=== PATIENT | male | born 1995 | race Caucasian/White ===

== ENCOUNTER 2021-08-18 08:53 | Emergency (ER) | payer OTHER, MEDICAID, SELFPAY ==
[2021-08-18 09:03] VITALS: BP 130/87; PULSE 66; RESP 20; TEMP 36.6; O2SAT 98; BMI 20.5
[2021-08-18] MEDS: ALBUTEROL 2.5 MG/3 ML NEB (ADULT) 5 MG INH (09:14)
[2021-08-18 09:15] VITALS: O2SAT 98
[2021-08-18 09:24] VITALS: PULSE 79; O2SAT 100
[2021-08-18 09:30] VITALS: PULSE 85; O2SAT 98
[2021-08-18 09:37] LABS: COVID19 -Nasal RAPID Negative (Negative)
--- NOTE | 2021-08-18 09:47 | ED.SOB ---
HPI - SOB/Dyspnea General Chief Complaint: Shortness of Breath/Dyspnea Stated Complaint: Trouble breathing Time Seen by Provider: 08/18/21 09:46 Source: family Mode of arrival: Ambulatory Limitations: no limitations History of Present Illness HPI Narrative: This is a 25-year-old male with remote history of asthma. Patient states he woke up this morning feeling very tight in his chest. Patient denies any pain. No syncope. No nausea or vomiting. No other GI or urinary symptoms. Patient has not had to use an inhaler since he was much younger. Nose road seasonal allergies. He has a cough this morning, little bit of congestion in his upper chest but no nasal congestion. He has not had any fevers. Patient is otherwise healthy. No daily medications. He is allergic to iodine. Has not had any known exposures. He uses marijuana daily, no tobacco or vaping, occasional alcohol, no other recreational illicit drugs. Related Data Previous Rx's Medication Instructions Recorded albuterol sulfate 90 mcg/actuation 2 puff INHALATION QID PRN #8.5 g 08/18/21 aerosol inhaler prednisone 20 mg tablet 40 mg PO DAILY #6 tab 08/18/21 Allergies Allergy/AdvReac Type Severity Reaction Status Date / Time iodine [IODINE] Allergy Intermediate RED Unverified 07/04/17 11:46 BUMPS/RASH ALL OVER HIS LEGS (TOE SURGERY) Review of Systems Review of Systems ROS Unobtainable: All systems reviewed & are unremarkable except as noted in HPI and below Patient History Social History Smoking Status: Never smoker Smoking Status: Never smoker alcohol intake frequency: a few times a week Substance Use Type: marijuana Exam Narrative Exam Narrative: GENERAL: Alert and oriented x three, male in mild distress. HEENT: Head normocephalic, atraumatic, EOMI, pupils reactive, face symmetric, moist mucous membranes NECK: Supple, full range of motion CARDIOVASCULAR: Regular rate and rhythm without murmurs, rubs or gallops. RESPIRATORY: Breath sounds equal bilaterally, no wheezes rales or rhonchi. No tachypnea accessory muscle use. Speaks in full sentences. Patient had received 1 albuterol neb prior to evaluation. ABDOMEN: Soft, nontender. Normoactive bowel sounds all 4 quadrants. No guarding or rebound, rigidity, no mass : No CVA tenderness EXTREMITIES: Normal range of motion, no clubbing or edema. Neurovascularly intact NEUROLOGICAL: Cranial nerves II through XII grossly intact. Moving all extremities. Normal gait. SKIN: Warm, dry, no petechiae, no rashes or lesions. Initial Vital Signs Initial Vital Signs: Vital Signs Temperature 97.9 F 08/18/21 09:03 Pulse Rate 66 08/18/21 09:03 Respiratory Rate 20 08/18/21 09:03 Blood Pressure 130/87 08/18/21 09:03 Pulse Oximetry 98 08/18/21 09:03 Course Orders Ordered: Discontinued Medications Albuterol (Albuterol 2.5 Mg/3 Ml Neb (Adult)) 5 mg INH NOW ONE Stop: 08/18/21 09:11 Last Admin: 08/18/21 09:14 Dose: 5 mg Documented by: TYSHAWN Albuterol (Albuterol Hfa Prepack) 1 box MISC SEEINSTR ONE Stop: 08/18/21 10:31 Last Admin: 08/18/21 10:39 Dose: 1 box Documented by: YAMIL Prednisone (Prednisone 20 Mg Tablet) 40 mg PO NOW ONE Stop: 08/18/21 09:51 Last Admin: 08/18/21 10:04 Dose: 40 mg Documented by: YAMIL Vital Signs Vital signs: Vital Signs - 8 hr 08/18/21 09:03 08/18/21 09:15 08/18/21 09:24 Temperature 97.9 F Pulse Rate 66 79 Respiratory Rate 20 Blood Pressure 130/87 Pulse Oximetry 98 98 100 MDM - SOB/Dyspnea Lab Data Labs: Lab Results 08/18/21 Range/Units 09:00 SARS-CoV-2 (PCR) Negative (Negative) Imaging Data Chest x-ray: Radiologist's Impression: [address] [address] XRay Report Signed Patient: Elidia Calvillo MR#: [id number] : 1995 Acct:[id number] Age/Sex: 25 / M Date of Service: 08/18/21 Loc: ED Accession Number: [id number] ?? Procedure: XR chest 2V Ordering Provider: Juani Bassett D.O. PROCEDURE:? XR CHEST 2V ? INDICATIONS:? sob, remote asthma hx ? TECHNIQUE:? 2 views of the chest were acquired.? ? COMPARISON:? [facility], , CHEST 1 VIEW, 07/02/2014, 20:17. ? FINDINGS:? ? Surgical changes and devices:? None.? ? Lungs and pleura:? Lungs are clear.? No pleural effusions or pneumothorax.? ? Mediastinum:? Mediastinal contours are normal.? Heart size is normal.? ? Bones and chest wall:? No suspicious bony abnormalities.? Soft tissues appear unremarkable.? ? IMPRESSION:? No acute cardiopulmonary pathology. ? ? Dictated by: Sha Rodriguez M.D. on 08/18/2021 at 10:15 ? ? Approved by: Sha Rodriguez M.D. on 08/18/2021 at 10:19?? MDM Narrative Medical decision making narrative: This is a 25-year-old male with known history of asthma who woke up with shortness of breath who responded well to albuterol. Patient's COVID swab is negative, he has not had any recent upper respiratory infection type symptoms. No known seasonal allergies. He does use marijuana daily. Chest x-ray was obtained and shows no acute change. Patient responded well to albuterol, prescription for albuterol provided as well as short course of prednisone. Patient does not have a spacer and her head use RT training was given. Plan to follow-up with primary care. Return precautions discussed. Discharge Plan Departure Patient Disposition: Home Clinical Impression: Asthma exacerbation Instructions: DI for Asthma -- Adult Activity Restrictions/Additional Instructions: Follow-up with primary care for recheck. A suspect your having an asthma exacerbation today. Take steroids once daily until gone. You may use albuterol 1-2 puffs every 4-6 hours as needed for wheezing. Use spacer with your inhaler. Prescription sent to [facility]. Return if having fevers, new or worsening chest pain, increasing shortness of breath, passing out, persistent vomiting or other new or concerning symptoms. Prescriptions: New albuterol sulfate 90 mcg/actuation HFA aerosol inhaler 2 puff inhalation QID PRN (Reason: shortness of breath or wheezing) Qty: 8.5 0RF prednisone 20 mg tablet 40 mg PO DAILY Qty: 6 0RF
--- NOTE | 2021-08-18 09:50 | DI.RAD.S_ITS ---
PROCEDURE: XR CHEST 2V INDICATIONS: sob, remote asthma hx TECHNIQUE: 2 views of the chest were acquired. COMPARISON: [facility], , CHEST 1 VIEW, 07/02/2014, 20:17. FINDINGS: Surgical changes and devices: None. Lungs and pleura: Lungs are clear. No pleural effusions or pneumothorax. Mediastinum: Mediastinal contours are normal. Heart size is normal. Bones and chest wall: No suspicious bony abnormalities. Soft tissues appear unremarkable. IMPRESSION: No acute cardiopulmonary pathology. Dictated by: Sha Rodirguez M.D. on 08/18/2021 at 10:15 Approved by: Sha Rodriguez M.D. on 08/18/2021 at 10:19
[2021-08-18 10:03] VITALS: PULSE 86; O2SAT 93
[2021-08-18] MEDS: predniSONE 20 MG TABLET 40 MG PO (10:04)
[2021-08-18 10:30] VITALS: PULSE 76; O2SAT 97
[2021-08-18] MEDS: ALBUTEROL HFA PREPACK 1 BOX MISC (10:39)
== END 2021-08-18 10:56 | disposition home or self-care (01) ==
PROVIDERS: Emergency Provider Emergency Medicine
DX: J45.901 Unspecified asthma with (acute) exacerbation (principal); R07.89 Other chest pain; Z20.822 Contact with and (suspected) exposure to COVID-19
CPT/HCPCS: 71046; 87635; 94640; 99283; C9803; J7613

== ENCOUNTER 2022-02-20 19:14 | Emergency (ER) | payer OTHER, MEDICAID, SELFPAY ==
[2022-02-20 19:20] VITALS: BP 133/73; PULSE 80; RESP 18; TEMP 36.7; O2SAT 98; BMI 20.5
[2022-02-20] MEDS: PENICILLIN G BENZATHINE 1,200,000 UNIT/2 ML SYRINGE 1200000 UNIT IM (19:58)
--- NOTE | 2022-02-20 20:24 | ED.URI ---
HPI - URI/Sore Throat General Chief Complaint: Upper Respiratory Symptoms Stated Complaint: Needs tonsils checked out Time Seen by Provider: 02/20/22 19:21 Source: patient Mode of arrival: Ambulatory History of Present Illness HPI Narrative: 26-year-old male nonsmoker with noncontributory medical history presents for evaluation of sore throat for the past day or 2. He is had subjective fever and chills and a sore throat with painful swallowing. He denies runny nose or cough. He has had no nausea or vomiting. He denies any chest pain or shortness of breath. Related Data Previous Rx's Medication Instructions Recorded albuterol sulfate 90 mcg/actuation 2 puff inhalation QID PRN 08/18/21 aerosol inhaler shortness of breath or wheezing #8.5 grams prednisone 20 mg tablet 40 mg PO DAILY #6 tabs 08/18/21 Allergies Allergy/AdvReac Type Severity Reaction Status Date / Time iodine [IODINE] Allergy Intermediate RED Verified 02/20/22 19:20 BUMPS/RASH ALL OVER HIS LEGS (TOE SURGERY) Review of Systems Review of Systems Narrative: GENERAL: See HPI HEENT: See HPI RESPIRATORY: See HPI CARDIOVASCULAR: Denies chest pain, palpitations, orthopnea, edema, GASTROINTESTINAL: Denies nausea, vomiting, abdominal pain, diarrhea, constipation, melena. : Denies dysuria, frequency, incontinence, hematuria, urinary retention. MUSCULOSKELETAL: denies weakness, joint pain, or bony pain SKIN: Denies rash, skin lesions, or other NEUROLOGIC: Denies weakness, headache, numbness, change in speech, confusion, seizures, incoordination. PSYCHIATRIC: No concerning psychosocial issues. 12 point review of systems is negative except for those stated above Patient History Social History Smoking Status: Never smoker Smoking Status: Never smoker alcohol intake frequency: a few times a week Substance Use Type: marijuana Exam Narrative Exam Narrative: GENERAL: [26] year old patient appears stated age. Well-developed patient, in mild distress. Patient managing secretions and airway without difficulty HEAD: Atraumatic. Normocephalic. EYES: Pupils equal round and reactive. Extraocular motions intact. No scleral icterus. No injection or drainage. ENT: Nose without bleeding, purulent drainage. T tonsillar swelling and erythema with mild soft palate petechiae, no obvious exudate noted. No significant unilateral swelling or uvular pointing to suggest abscess NECK: Trachea midline. Tender anterior lymphadenopathy CARDIOVASCULAR: Regular rate and rhythm without murmurs, gallops, or rubs. RESPIRATORY: Clear to auscultation. Breath sounds equal bilaterally. No wheezes, rales, or rhonchi. GASTROINTESTINAL: Abdomen soft, non-tender, nondistended. EXTREMITIES: No edema or joint tenderness. BACK: Nontender without deformity or crepitance. No flank tenderness. NEURO: AOx3. SKIN: No rash or erythema of visible areas Initial Vital Signs Initial Vital Signs: Vital Signs Temperature 98.0 F 02/20/22 19:20 Pulse Rate 80 02/20/22 19:20 Respiratory Rate 18 02/20/22 19:20 Blood Pressure 133/73 02/20/22 19:20 Pulse Oximetry 98 02/20/22 19:20 Oxygen Delivery Method 02/20/22 19:20 Course Orders Ordered: Discontinued Medications Penicillin G Benzathine (Penicillin G Benzathine 1,200,000 Unit/2 Ml Syringe) 1,200,000 unit IM NOW ONE Stop: 02/20/22 19:50 Last Admin: 02/20/22 19:58 Dose: 1,200,000 unit Documented By: BS Vital Signs Vital signs: Vital Signs - 8 hr 02/20/22 19:20 02/20/22 20:27 Temperature 98.0 F Pulse Rate 80 72 Respiratory Rate 18 16 Blood Pressure 133/73 Pulse Oximetry 98 99 Oxygen Delivery Method Room Air Room Air MDM - URI/Sore Throat Lab Data Labs: Point of Care Testing Rapid Strep A Positive Discharge Plan Departure Patient Disposition: Home Clinical Impression: Strep pharyngitis Instructions: DI for Strep Throat Activity Restrictions/Additional Instructions: *You have been diagnosed with [strep pharyngitis] *What to do: *Please continue to take your regular medications as directed. *Please follow up with your primary care provider in 2-3 days, call for an appointment. Let them know you were seen in the Emergency Department and that we ask that you be seen in follow up. We will electronically transmit a record of today's note if your PCP is in our system *If you do not have a primary care provider please contact the [facility] Resource line at [phone]. They will ask some questions about your medical history and help get you set up with a doctor in the community. *Return to Emergency Department if you should have any new, worsening or concerning symptoms, such as [fever greater than 101 F, shaking chills, worsening pain, persistent vomiting or other bothersome symptoms] Prescriptions: No Action albuterol sulfate 90 mcg/actuation HFA aerosol inhaler 2 puff inhalation QID PRN (Reason: shortness of breath or wheezing) Qty: 8.5 0RF prednisone 20 mg tablet 40 mg PO DAILY Qty: 6 0RF Visit Report Forms: Patient Portal/API
[2022-02-20 20:27] VITALS: PULSE 72; RESP 16; O2SAT 99
== END 2022-02-20 20:28 | disposition home or self-care (01) ==
PROVIDERS: Emergency Provider Emergency Medicine
DX: J02.0 Streptococcal pharyngitis (principal)
CPT/HCPCS: 87880; 96372; 99283; J0561

== ENCOUNTER 2022-03-07 17:00 | Emergency (ER) | payer OTHER, MEDICAID, SELFPAY ==
[2022-03-07 17:16] VITALS: BP 128/60; PULSE 68; RESP 15; TEMP 37.2; O2SAT 100
--- NOTE | 2022-03-07 17:27 | ED.RECABL ---
HPI - Recheck/Abnormal Lab/Rx <Jossie Mason PA-C - Last Filed: 03/07/22 17:37> General Chief Complaint: Recheck/Abnormal Lab/Rx Stated Complaint: needs new inhaler Time Seen by Provider: 03/07/22 17:26 Source: patient Mode of arrival: Ambulatory History of Present Illness HPI narrative: 26-year-old male presents to the emergency department with concern for wanting a new inhaler. He states he normally uses albuterol since childhood for asthma and breathing issues. He had the flu last week and his symptoms have resolved but his inhaler is getting low and he would like a refill. He is working on getting established with a primary care provider locally. He states he often gets throat discomfort during and after a viral illness and he feels like the inhaler helps with this helps with his breathing. He does not feel like his breathing is worse than it has been in the past. He denies any other complaints or concerns. Related Data Previous Rx's Medication Instructions Recorded albuterol sulfate 90 mcg/actuation 2 puff inhalation QID PRN 08/18/21 aerosol inhaler shortness of breath or wheezing #8.5 grams prednisone 20 mg tablet 40 mg PO DAILY #6 tabs 08/18/21 albuterol sulfate 90 mcg/actuation 2 puff inhalation Q6H PRN 03/07/22 aerosol inhaler shortness of breath or wheezing #6.7 grams Allergies Allergy/AdvReac Type Severity Reaction Status Date / Time iodine [IODINE] Allergy Intermediate RED Verified 03/07/22 17:16 BUMPS/RASH ALL OVER HIS LEGS (TOE SURGERY) Review of Systems <Jossie Mason PA-C - Last Filed: 03/07/22 17:37> Review of Systems Narrative: Unremarkable except as noted in the HPI Patient History <Jossie Mason PA-C - Last Filed: 03/07/22 17:37> Social History Smoking Status: Never smoker Smoking Status: Never smoker alcohol intake frequency: holidays/special occasions only Substance Use Type: marijuana Exam <Jossie Mason PA-C - Last Filed: 03/07/22 17:37> Narrative Exam Narrative: GENERAL: 26 year old patient appears stated age. Well-developed patient, in mild distress. HEAD: Atraumatic. Normocephalic. EYES: Pupils equal round and reactive. Extraocular motions intact. No scleral icterus. No injection or drainage. ENT: Nose without bleeding, purulent drainage. Throat without erythema, tonsillar hypertrophy or exudate. Airway patent. NECK: Trachea midline. Non tender CARDIOVASCULAR: Regular rate and rhythm without murmurs, gallops, or rubs. RESPIRATORY: Clear to auscultation. Breath sounds equal bilaterally. No wheezes, rales, or rhonchi. GASTROINTESTINAL: Abdomen nondistended. EXTREMITIES: No edema or joint tenderness. NEURO: AOx3. SKIN: No rash or erythema of visible areas Initial Vital Signs Initial Vital Signs: Vital Signs Temperature 99.0 F 03/07/22 17:16 Pulse Rate 68 03/07/22 17:16 Respiratory Rate 15 03/07/22 17:16 Blood Pressure 128/60 03/07/22 17:16 Pulse Oximetry 100 03/07/22 17:16 Oxygen Delivery Method 03/07/22 17:16 <Alpa Allan DO - Last Filed: 03/09/22 04:36> Initial Vital Signs Initial Vital Signs: Vital Signs Temperature 99.0 F 03/07/22 17:16 Pulse Rate 68 03/07/22 17:16 Respiratory Rate 15 03/07/22 17:16 Blood Pressure 128/60 03/07/22 17:16 Pulse Oximetry 100 03/07/22 17:16 Oxygen Delivery Method 03/07/22 17:16 Course <Jossie Mason PA-C - Last Filed: 03/07/22 17:37> Vital Signs Vital signs: Vital Signs - 8 hr 03/07/22 17:16 Temperature 99.0 F Pulse Rate 68 Respiratory Rate 15 Blood Pressure 128/60 Pulse Oximetry 100 Oxygen Delivery Method Room Air <Alpa Allan DO - Last Filed: 03/09/22 04:36> Vital Signs Vital signs: Vital Signs - 8 hr 03/07/22 17:16 Temperature 99.0 F Pulse Rate 68 Respiratory Rate 15 Blood Pressure 128/60 Pulse Oximetry 100 Oxygen Delivery Method Room Air MDM - Recheck/Abnormal Lab/Rx <Jossie Mason PA-C - Last Filed: 03/07/22 17:37> MDM Narrative Medical decision making narrative: Well-appearing 26-year-old with a history of asthma presents with concern for wanting a medication refill of his albuterol inhaler. Patient states he had the flu last week and recovered from this but feels like his breathing is still affected. Vitals today are unremarkable lung sounds are clear. Patient denies any other complaints or concerns except wanting a refill as his inhaler is running very low. Does not feel that his breathing is worsened baseline with his asthma. A refill is prescribed today and he is advised to continue to work on following up closely and seeing a primary care provider for ongoing care and maintenance of his asthma symptoms. Return precautions provided, follow-up plan discussed, all questions answered. Discharge Plan Departure Patient Disposition: Home Clinical Impression: Medication refill Activity Restrictions/Additional Instructions: Thank you for letting us be part of her care in the emergency department today. I have sent in a prescription for a new inhaler for you. I strongly recommend that you follow up closely with primary care and work on getting into be seen with a regular doctor. There is no evidence of an emergent or life threatening illness at this time, but follow up with your doctor in 1-2 days is recommended nonetheless to continue to rule out serious underlying causes of your symptoms. Please call the office for an appointment. Please return to the Emergency Department for any worsening or persistent symptoms. Please take medications as directed. Prescriptions: New albuterol sulfate 90 mcg/actuation HFA aerosol inhaler 2 puff inhalation Q6H PRN (Reason: shortness of breath or wheezing) Qty: 6.7 0RF No Action albuterol sulfate 90 mcg/actuation HFA aerosol inhaler 2 puff inhalation QID PRN (Reason: shortness of breath or wheezing) Qty: 8.5 0RF prednisone 20 mg tablet 40 mg PO DAILY Qty: 6 0RF Visit Report Forms: Patient Portal/API <Alpa Allan, - Last Filed: 03/09/22 04:36> Cosign ED Attending Cosorlandoature Attestation: I was immediately available in the department for consultation. Documentation has been reviewed. I agree with assessment and plan.
== END 2022-03-07 17:33 | disposition home or self-care (01) ==
PROVIDERS: Emergency Provider Student in an Organized Health Care Education/Training Program
DX: Z76.0 Encounter for issue of repeat prescription (principal)
CPT/HCPCS: 99281

== ENCOUNTER 2022-06-11 10:33 | Emergency (ER) | payer OTHER, MEDICAID, SELFPAY ==
[2022-06-11 10:54] VITALS: BP 166/65; PULSE 73; RESP 16; TEMP 36.8; O2SAT 97; BMI 20.5
--- NOTE | 2022-06-11 10:59 | DI.RAD.S_ITS ---
PROCEDURE: XR KNEE RT 3V INDICATIONS: trauma TECHNIQUE: For views of the knee were acquired. COMPARISON: [facility], , KNEE 3V RIGHT, 07/29/2014, 16:00. FINDINGS: Bones: No fractures or dislocations. No suspicious bony lesions. Questionable linear calcifications near the intertrochanteric notch Soft tissues: Moderate effusion. Patella faizan. No suspicious soft tissue calcifications. IMPRESSION: Moderate effusion, cannot exclude internal derangement. Subtle calcification concerning for intra-articular free body. Dictated by: Otoniel Gaspar M.D. on 06/11/2022 at 10:41 Approved by: Otoniel Gasapr M.D. on 06/11/2022 at 10:45
--- NOTE | 2022-06-11 11:01 | ED.LOWEXIN ---
HPI - Extremity Injury (Lower) General Chief Complaint: Extremity Injury, Lower Stated Complaint: R Knee pain after wrestling Time Seen by Provider: 06/11/22 10:59 History of Present Illness HPI Narrative: While wrestling last night he feels that his right knee was dislocated briefly. Specifically what he describes is a valgus stress on his knee which caused the knee to bend medially to touch the other knee. He denies injury elsewhere. Since that injury last night he is not been able to bear weight on that leg. The pain is entirely locally around his right knee. He has had some chronic knee problems over the years. No previous surgery. Related Data Previous Rx's Medication Instructions Recorded albuterol sulfate 90 mcg/actuation 2 puff inhalation QID PRN 08/18/21 aerosol inhaler shortness of breath or wheezing #8.5 grams prednisone 20 mg tablet 40 mg PO DAILY #6 tabs 08/18/21 albuterol sulfate 90 mcg/actuation 2 puff inhalation Q6H PRN 03/07/22 aerosol inhaler shortness of breath or wheezing #6.7 grams Allergies Allergy/AdvReac Type Severity Reaction Status Date / Time iodine [IODINE] Allergy Intermediate RED Verified 03/07/22 17:16 BUMPS/RASH ALL OVER HIS LEGS (TOE SURGERY) Patient History Social History Smoking Status: Never smoker Smoking Status: Never smoker alcohol intake frequency: holidays/special occasions only Substance Use Type: marijuana Exam Narrative Exam Narrative: GENERAL: Alert, cooperative and in no distress. HEAD: Atraumatic. Normocephalic. EYES: Sclera are clear without icterus. Extraocular movements are full. ENT: No rhinorrhea NECK: No visible abnormality RESPIRATORY: No respiratory distress GASTROINTESTINAL: Nondistended EXTREMITIES: Right knee is swollen and warm. Not red. Diffuse tenderness. Pretty much everywhere I touch on his knee is tender including the joint lines, condyles, popliteal fossa, patella, literally everywhere. There is no obvious laxity. His range of motion is profoundly limited from pain. The rest of the leg looks normal. It is pink throughout. He has normal dorsalis pedis and posterior tibial pulse. NEURO: Nonfocal, normal speech SKIN: No rash or erythema of visible areas PSYCH: Normally oriented. Normal range of affect. Appropriate behavior Initial Vital Signs Initial Vital Signs: Vital Signs Temperature 98.3 F 06/11/22 10:54 Pulse Rate 73 06/11/22 10:54 Respiratory Rate 16 06/11/22 10:54 Blood Pressure 166/65 H 06/11/22 10:54 Pulse Oximetry 97 06/11/22 10:54 Oxygen Delivery Method Room Air 06/11/22 10:54 Course Course Course Narrative: This gentleman has had a injury that sounds suspicious for medial collateral ligament strain or rupture. Has a completely stable exam though it is quite limited based on pain. I do not suspect a joint was dislocation or vascular injury as I do not think he has disrupted major supportive ligaments such as ACL or PCL. The knee seems relatively stable. I recognize that peripheral pulses are not sufficient to exclude vascular injury but given the nature of the injury and the relative stability to the knee I think a vascular injury is unlikely. We will start with plain films now. Will administer oral analgesics. Orders Ordered: ED Orders 06/11/22 10:59 XR knee RT 3V Stat Discontinued Medications Acetaminophen (Acetaminophen 325 Mg Tablet) 975 mg PO NOW ONE Stop: 06/11/22 11:00 Ibuprofen (Ibuprofen 400 Mg Tablet) 800 mg PO NOW ONE Stop: 06/11/22 11:00 Vital Signs Vital signs: Vital Signs - 8 hr 06/11/22 10:54 Temperature 98.3 F Pulse Rate 73 Respiratory Rate 16 Blood Pressure 166/65 H Pulse Oximetry 97 Oxygen Delivery Method Room Air Discharge Plan Departure Prescriptions: No Action albuterol sulfate 90 mcg/actuation HFA aerosol inhaler 2 puff inhalation QID PRN (Reason: shortness of breath or wheezing) Qty: 8.5 0RF prednisone 20 mg tablet 40 mg PO DAILY Qty: 6 0RF albuterol sulfate 90 mcg/actuation HFA aerosol inhaler 2 puff inhalation Q6H PRN (Reason: shortness of breath or wheezing) Qty: 6.7 0RF
[2022-06-11] MEDS: IBUPROFEN 400 MG TABLET 800 MG PO (11:13)
[2022-06-11] MEDS: ACETAMINOPHEN 325 MG TABLET 975 MG PO (11:13)
--- NOTE | 2022-06-11 11:33 | PC.NURSE ---
patient wrestling last night and heard a pop. In a lot of pain. Can flex and extend but not bear weight
[2022-06-11 12:57] VITALS: BP 105/60; PULSE 52; RESP 12; O2SAT 97
--- NOTE | 2022-06-12 10:09 | PC.NURSE ---
Addendum entered by Carrie Rodriguez R.N. 06/12/22 10:14: Spoke directly w/ patient, given message below. Encouraged to f/u as needed and return if any difficulty/ concerns. Pt states he will go to a local walk in. Original Note: Received phone call from Dyan, pt support and Pt. They state that Morphine 15 mg tab not available. Discussed w/ Dr. Pool who is unable to change prescription. Called back number given however the message on phone reveals different phone number than one being called so no message is left.
== END 2022-06-11 12:59 | disposition home or self-care (01) ==
PROVIDERS: Emergency Provider Family Medicine Addiction Medicine
DX: M25.461 Effusion, right knee (principal)
CPT/HCPCS: 73562; 99283

== ENCOUNTER 2022-06-21 13:36 | Emergency (ER) | payer OTHER, MEDICAID, SELFPAY ==
--- NOTE | 2022-06-21 14:09 | DI.RAD.S_ITS ---
PROCEDURE: XR KNEE RT 3V INDICATIONS: pain TECHNIQUE: 3 views of the knee were acquired. COMPARISON: [facility], , XR KNEE RT 3V, 06/11/2022, 11:04. [facility], , KNEE 3V RIGHT, 07/29/2014, 16:00. FINDINGS: Bones: No acute fractures or dislocations. No suspicious bony lesions. Soft tissues: Moderate joint effusion. No suspicious soft tissue calcifications. IMPRESSION: No acute fracture identified. Nonspecific knee effusion, similar to slightly decreased. If symptoms persist, follow-up radiographs and/or CT or MRI may be helpful for further evaluation. Dictated by: Elkin Rojas M.D. on 06/21/2022 at 14:35 Approved by: Elkin Rojas M.D. on 06/21/2022 at 14:38
[2022-06-21 14:29] VITALS: BP 111/72; PULSE 69; RESP 20; TEMP 36.8; O2SAT 98; BMI 20.5
--- NOTE | 2022-06-21 15:27 | ED_ITS ---
HPI - Extremity Problem General Chief complaint: Extremity Problem,Nontraumatic Stated complaint: rt knee pain Time Seen by Provider: 06/21/22 15:08 Source: patient Mode of arrival: Family Vehicle History of Present Illness HPI Narrative: This is a 26-year-old male who was seen on 06/11/2022 in the emergency department for concern about dislocated right knee while he was wrestling. He describes a valgus strain on his knee and cause the knee to bend medially and touched the other knee. He has tenderness over the proximal MCL attachment, no quadriceps tenderness, states he has not been able to bear weight on that leg. He was given some pain medication which he states he only has 1 dose left of, and is here to gained follow-up because he does not have a primary care provider. Related Data Previous Rx's Medication Instructions Recorded albuterol sulfate 90 mcg/actuation 2 puff inhalation QID PRN 08/18/21 aerosol inhaler shortness of breath or wheezing #8.5 grams prednisone 20 mg tablet 40 mg PO DAILY #6 tabs 08/18/21 albuterol sulfate 90 mcg/actuation 2 puff inhalation Q6H PRN 03/07/22 aerosol inhaler shortness of breath or wheezing #6.7 grams morphine 15 mg immediate release 15 mg PO Q4H PRN pain #12 tabs 06/11/22 tablet ibuprofen 600 mg tablet 600 mg PO Q8H PRN pain #30 tabs 06/21/22 oxycodone-acetaminophen 5 mg-325 1 tab PO Q8H PRN pain #20 tabs 06/21/22 mg tablet (Percocet) Allergies Allergy/AdvReac Type Severity Reaction Status Date / Time iodine [IODINE] Allergy Intermediate RED Verified 03/07/22 17:16 BUMPS/RASH ALL OVER HIS LEGS (TOE SURGERY) Review of Systems Review of Systems ROS Unobtainable: All systems reviewed & are unremarkable except as noted in HPI and below Patient History Social History Smoking Status: Never smoker Smoking Status: Never smoker alcohol intake frequency: holidays/special occasions only Substance Use Type: marijuana Exam Narrative Exam Narrative: Reviewed vitals signs and nursing notes. General: cooperative, in no acute distress, well groomed MSK: moves all extremities, neurovascularly intact, no weakness, normal tone, right knee with suprapatellar effusion, tenderness over the proximal attachment of the MCL, knee extension against resistance intact without pain, normal knee flexion, concern for MCL injury, negative Raymundo's, increased laxity with valgus testing, no increased laxity with varus, mild tenderness on the proximal LCL as well. Patellar tendon is intact Skin: brisk capillary refill, without rash or wound Neuro: normal speech and cognition, A&O x3, ambulatory, clear speech Initial Vital Signs Initial Vital Signs: Vital Signs Temperature 98.3 F 06/21/22 14:29 Pulse Rate 69 06/21/22 14:29 Respiratory Rate 20 06/21/22 14:29 Blood Pressure 111/72 06/21/22 14:29 Pulse Oximetry 98 06/21/22 14:29 Oxygen Delivery Method Room Air 06/21/22 14:29 Procedures Orthopedic Splinting/Casting Injury #1: Side: left Lower Extremity Injury Location: knee Lower Extremity Immobilizer: knee immobilizer Other Orthopedic Equipment: crutches Post splinting neuro exam: intact Post splinting vascular exam: intact Placed by: Nursing Course Orders Ordered: ED Orders 06/21/22 14:09 XR knee RT 3V Stat Discontinued Medications Ketorolac Tromethamine (Ketorolac 30 Mg/Ml Vial) 15 mg IM NOW ONE Stop: 06/21/22 15:15 Last Admin: 06/21/22 15:29 Dose: 15 mg Oxycodone/Acetaminophen (Oxycodone/Acetaminophen 5/325 Tablet) 1 tab PO NOW ONE Stop: 06/21/22 15:15 Last Admin: 06/21/22 15:28 Dose: 1 tab Vital Signs Vital signs: Vital Signs - 8 hr 06/21/22 14:29 Temperature 98.3 F Pulse Rate 69 Respiratory Rate 20 Blood Pressure 111/72 Pulse Oximetry 98 Oxygen Delivery Method Room Air MDM - Extremity (Nontraumatic) Imaging Data Extremity x-ray #1: Radiologist's Impression: PROCEDURE:? XR KNEE RT 3V ? INDICATIONS:? pain ? TECHNIQUE:? 3 views of the knee were acquired.? ? COMPARISON:? [facility], , XR KNEE RT 3V, 06/11/2022, 11:04.? [facility], , KNEE 3V RIGHT, 07/29/2014, 16:00. ? FINDINGS:? ? Bones:? No acute fractures or dislocations.? No suspicious bony lesions.? ? Soft tissues:? Moderate joint effusion.? No suspicious soft tissue calcifications.? ? ? IMPRESSION:? No acute fracture identified.? Nonspecific knee effusion, similar to slightly decreased. If symptoms persist, follow-up radiographs and/or CT or MRI may be helpful for further evaluation. ? ? Dictated by: Elkin Rojas M.D. on 06/21/2022 at 14:35 ? ? Approved by: Elkin Rojas M.D. on 06/21/2022 at 14:38 ? MDM Narrative Medical decision making narrative: Chief Complaint: Independent historian: Patient Differential diagnoses include but are not limited to: Meniscal injury MCL tear, patellar tendon injury, other ligamental injury of the knee, acute fracture, dislocation of the patella, knee effusion I have independently reviewed the patient's vital signs and nursing notes as well as prior records if available. Pertinent Imaging reviewed: Right knee x-ray shows a moderate joint effusion without acute fracture similar to before on 06/11/2022 On exam, patient has a suprapatellar effusion, tenderness over the MCL most proximally, states that he can not bear weight and feels unstable, has been using an Otdd bandage, did not get a knee immobilizer at his hospital visit the 1st time. Is almost out of his morphine tabs. Will treat him with Percocet, NSAIDs, he was fitted in a knee immobilizer and is using crutches for ambulation. He understands to schedule an appointment with [facility]. He does not have a primary care provider. Social considerations that may affect disposition: none Questions are addressed and there is agreement with the plan and for follow-up. Patient is appropriate for outpatient management. MIPS: This encounter doesn't have any diagnosis' associated with MIPS criteria. Discharge Plan Departure Patient Disposition: Home Clinical Impression: Pain of knee after injury Effusion of knee Qualifiers: Laterality: right Qualified Code(s): M25.461 - Effusion, right knee Instructions: DI for Knee Effusion, How to Use a Knee Immobilizer Activity Restrictions/Additional Instructions: *You have been diagnosed with [ ] *What to do: *Please continue to take your regular medications as directed. [ ] New medication prescriptions sent to your pharmacy: [ ] [ ] New medication written as a paper prescription [ ] No new medications given *Please follow up with your primary care provider in 2-3 days, call for an appointment. Let them know you were seen in the Emergency Department and that we asked that you be seen for follow-up. We will electronically transmit a record of today's note if your PCP is in our system *If you do not have a primary care provider please contact [phone] to establish care with one of the [facility] primary care providers. *Return to Emergency Department if you should have any new, worsening, or concerning symptoms, such as [fever greater than 101F, chills, worsening pain, persistent vomiting or other bothersome symptoms]. Prescriptions: New oxycodone-acetaminophen [Percocet] 5-325 mg tablet 1 tab PO Q8H PRN (Reason: pain) Qty: 20 0RF ibuprofen 600 mg tablet 600 mg PO Q8H PRN (Reason: pain) Qty: 30 0RF No Action morphine 15 mg tablet 15 mg PO Q4H PRN (Reason: pain) Qty: 12 0RF albuterol sulfate 90 mcg/actuation HFA aerosol inhaler 2 puff inhalation QID PRN (Reason: shortness of breath or wheezing) Qty: 8.5 0RF prednisone 20 mg tablet 40 mg PO DAILY Qty: 6 0RF albuterol sulfate 90 mcg/actuation HFA aerosol inhaler 2 puff inhalation Q6H PRN (Reason: shortness of breath or wheezing) Qty: 6.7 0RF Referrals: [facility] [Provider Group] Stand Alone Forms: Patient Portal/API
[2022-06-21] MEDS: OXYCODONE/ACETAMINOPHEN 5/325 TABLET 1 TAB PO (15:28)
[2022-06-21] MEDS: KETOROLAC 30 MG/ML VIAL 15 MG IM (15:29)
== END 2022-06-21 15:39 | disposition home or self-care (01) ==
PROVIDERS: Emergency Provider Nurse Practitioner Critical Care Medicine
DX: M25.461 Effusion, right knee (principal); M25.561 Pain in right knee; Y93.72 Activity, wrestling
CPT/HCPCS: 73562; 96372; 99283; 99284; J1885

== ENCOUNTER 2022-06-22 12:33 | Emergency (ER) | payer OTHER, MEDICAID, SELFPAY ==
[2022-06-22 12:58] VITALS: BP 155/59; PULSE 68; RESP 15; TEMP 36.6; O2SAT 99; BMI 20.5
--- NOTE | 2022-06-22 13:44 | ED.ABDPAIN ---
HPI - Abdominal Pain General Chief Complaint: Abdominal Pain Stated Complaint: Constipation Time Seen by Provider: 06/22/22 13:43 Source: patient Mode of arrival: Ambulatory History of Present Illness HPI narrative: Patient 26-year-old male who presents with constipation. He has been here twice for right knee strain once on June 11 and once June 21. June 21 he received Percocet previously he was on another narcotic. He has only taken 1 dose of be in a laxative without any relief. He said that he strained really hard this morning and had a very small bowel movement Related Data Previous Rx's Medication Instructions Recorded albuterol sulfate 90 mcg/actuation 2 puff inhalation QID PRN 08/18/21 aerosol inhaler shortness of breath or wheezing #8.5 grams prednisone 20 mg tablet 40 mg PO DAILY #6 tabs 08/18/21 albuterol sulfate 90 mcg/actuation 2 puff inhalation Q6H PRN 03/07/22 aerosol inhaler shortness of breath or wheezing #6.7 grams morphine 15 mg immediate release 15 mg PO Q4H PRN pain #12 tabs 06/11/22 tablet ibuprofen 600 mg tablet 600 mg PO Q8H PRN pain #30 tabs 06/21/22 oxycodone-acetaminophen 5 mg-325 1 tab PO Q8H PRN pain #20 tabs 06/21/22 mg tablet (Percocet) Allergies Allergy/AdvReac Type Severity Reaction Status Date / Time iodine [IODINE] Allergy Intermediate RED Verified 06/22/22 12:58 BUMPS/RASH ALL OVER HIS LEGS (TOE SURGERY) Review of Systems Review of Systems ROS Unobtainable: All systems reviewed & are unremarkable except as noted in HPI and below Patient History Social History Smoking Status: Never smoker Smoking Status: Never smoker alcohol intake frequency: holidays/special occasions only Substance Use Type: marijuana Exam Initial Vital Signs Initial Vital Signs: Vital Signs Temperature 97.8 F 06/22/22 12:58 Pulse Rate 68 06/22/22 12:58 Respiratory Rate 15 06/22/22 12:58 Blood Pressure 155/59 H 06/22/22 12:58 Pulse Oximetry 99 06/22/22 12:58 Oxygen Delivery Method Room Air 06/22/22 12:58 GENERAL: Well-appearing, well-nourished and in no acute distress. CARDIOVASCULAR: peripheral pulses in tact, cap refill <2 sec RESPIRATORY: No respiratory distress, speaks in full sentences without difficulty ABDOMEN: No distention no specific abdominal tenderness EXTREMITIES: Normal range of motion, no clubbing or edema. Neurovascularly intact NEUROLOGICAL: Cranial nerves II through XII grossly intact. Normal gait and speech. SKIN: Warm, dry, no petechiae, no rashes or lesions. Course Vital Signs Vital signs: Vital Signs - 8 hr 06/22/22 12:58 Temperature 97.8 F Pulse Rate 68 Respiratory Rate 15 Blood Pressure 155/59 H Pulse Oximetry 99 Oxygen Delivery Method Room Air MDM - Abdominal Pain MDM Narrative Medical decision making narrative: Patient is a healthy 26-year-old female who presents with constipation. He was recently put narcotic knee pain. His abdomen exam is benign and nondistended. He had hard stool bowel movement this morning with straining and some mild blood. He is not exhausted [id number] medications Discharge Plan Departure Patient Disposition: Home Clinical Impression: Constipation Qualifiers: Constipation type: drug induced constipation Qualified Code(s): K59.03 - Drug induced constipation Instructions: DI for Constipation Activity Restrictions/Additional Instructions: *You have been diagnosed with constipation secondary to opiate *What to do: At this time increase fluid intake increase activity *Continue to take medications as directed MiraLax once daily Dulcolax twice a day as needed for constipation this is a softener not a laxative Senokot 1-2 times daily as needed *Follow up with your primary care provider in 2-3 days or call [phone] *Return to ER if you should have increasing abdominal pain nausea vomiting or any new, worsening or concerning symptoms Prescriptions: No Action morphine 15 mg tablet 15 mg PO Q4H PRN (Reason: pain) Qty: 12 0RF albuterol sulfate 90 mcg/actuation HFA aerosol inhaler 2 puff inhalation QID PRN (Reason: shortness of breath or wheezing) Qty: 8.5 0RF prednisone 20 mg tablet 40 mg PO DAILY Qty: 6 0RF albuterol sulfate 90 mcg/actuation HFA aerosol inhaler 2 puff inhalation Q6H PRN (Reason: shortness of breath or wheezing) Qty: 6.7 0RF oxycodone-acetaminophen [Percocet] 5-325 mg tablet 1 tab PO Q8H PRN (Reason: pain) Qty: 20 0RF ibuprofen 600 mg tablet 600 mg PO Q8H PRN (Reason: pain) Qty: 30 0RF Stand Alone Forms: Patient Portal/API
== END 2022-06-22 14:10 | disposition home or self-care (01) ==
PROVIDERS: Emergency Provider Emergency Medicine
DX: K59.03 Drug induced constipation (principal)
CPT/HCPCS: 99281

== ENCOUNTER 2023-08-02 01:27 | Emergency (ER) | payer OTHER, MEDICAID, SELFPAY ==
[2023-08-02 01:38] VITALS: BP 156/85; PULSE 88; RESP 18; TEMP 36.2; O2SAT 98; BMI 20.5
--- NOTE | 2023-08-02 02:20 | ED_ITS ---
HPI - Dental/Oral General Chief complaint: Dental/Oral Stated complaint: toothache rt side Time Seen by Provider: 08/02/23 01:48 Source: patient Mode of arrival: Ambulatory History of Present Illness HPI Narrative: 27-year-old male with dental pain right upper tooth 4 weeks/months duration, states that he has tried acetaminophen suggested from the clinic, taking amoxicillin from a recent clinic visit, was given a Toradol shot, apparently not taking any ibuprofen or naproxen anti-inflammatory medications when asked by name. Pain has been severe, unable to sleep. The patient is able to swallow. No facial swelling. No fevers or chills. MD Complaint: tooth pain Onset (ago): week(s) Duration: constant Severity: moderate Relieving factors: nothing Related Data Previous Rx's Medication Instructions Recorded albuterol sulfate 90 mcg/actuation 2 puff inhalation QID PRN 08/18/21 aerosol inhaler shortness of breath or wheezing #8.5 grams prednisone 20 mg tablet 40 mg (2 x 20 mg) PO DAILY #6 tabs 08/18/21 albuterol sulfate 90 mcg/actuation 2 puff inhalation Q6H PRN 03/07/22 aerosol inhaler shortness of breath or wheezing #6.7 grams morphine 15 mg immediate release 15 mg PO Q4H PRN pain #12 tabs 06/11/22 tablet ibuprofen 600 mg tablet 600 mg PO Q8H PRN pain #30 tabs 06/21/22 oxycodone-acetaminophen 5 mg-325 1 tab PO Q8H PRN pain #20 tabs 06/21/22 mg tablet (Percocet) clindamycin HCl 300 mg capsule 300 mg PO Q6H Dental infection 7 08/02/23 days #28 caps Allergies Allergy/AdvReac Type Severity Reaction Status Date / Time iodine [IODINE] Allergy Intermediate RED Verified 06/22/22 12:58 BUMPS/RASH ALL OVER HIS LEGS (TOE SURGERY) Review of Systems Review of Systems Narrative: As per HPI Patient History Social History Smoking Status: Never smoker Smoking Status: Never smoker alcohol intake frequency: 0-2 drinks per day Substance Use Type: marijuana Exam Initial Vital Signs Initial Vital Signs: Vital Signs Temperature 97.2 F L 08/02/23 01:38 Pulse Rate 88 08/02/23 01:38 Respiratory Rate 18 08/02/23 01:38 Blood Pressure 156/85 H 08/02/23 01:38 Pulse Oximetry 98 08/02/23 01:38 Oxygen Delivery Method Room Air 08/02/23 01:38 Const General: cooperative HENMT Head: atraumatic Ears: external ears normal Nose: No nasal discharge Mouth: oral mucosae normal, tongue normal, moist mucous membranes and No muffled voice HENMT Other: Poor dentition generalized, right upper premolar tooth with significant dental decay and caries, no adjacent gingival edema or tongue edema or buccal facial edema Eyes Eyelids: eyelids normal Conjunctivae: conjunctivae normal Sclera: sclerae normal Pupils: PERRL EOM: EOM intact bilaterally Chest Chest: normal inspection of the chest Resp Effort & Inspection: normal respiratory effort and able to speak in complete sentences Auscultation: clear to auscultation bilaterally Cardio Rate: regular rate Rhythm: regular rhythm Heart Sounds: no murmurs GI Inspection: non-distended Palpation: No tender Neuro General: patient oriented x3 and no focal motor deficits Speech: speech normal Psych Mental Status: mental status grossly normal Attitude: cooperative Course Orders Ordered: Discontinued Medications Clindamycin HCl (Clindamycin 150 Mg Capsule) 300 mg PO NOW ONE Stop: 08/02/23 02:51 Last Admin: 08/02/23 03:02 Dose: 300 mg Documented By: MARSHA Ketorolac Tromethamine (Ketorolac 30 Mg/Ml Vial) 30 mg IM NOW ONE Stop: 08/02/23 02:29 Last Admin: 08/02/23 03:01 Dose: 30 mg Documented By: MARSHA Tramadol HCl (Tramadol 50 Mg Prepack) 1 bottle MISC DIRECTED ONE Stop: 08/02/23 03:16 Last Admin: 08/02/23 03:24 Dose: 1 bottle Documented By: MARSHA Reevaluation(s) Reevaluation #1: Patient requesting relief of dental pain. IM Toradol, consider change in antibiotic from amoxicillin to clindamycin, although definitive extraction will be needed for relief of his discomfort. He seems somewhat difficult to pin down in terms of who he might follow up with regard to dental care, consider med- seeking behavior. Consider regular scheduled use of naproxen anti-inflammatory pain medication Vital Signs Vital signs: Vital Signs - 8 hr 08/02/23 01:38 08/02/23 03:09 Temperature 97.2 F L 98.1 F Pulse Rate 88 88 Respiratory Rate 18 20 Blood Pressure 156/85 H 140/90 Pulse Oximetry 98 98 Oxygen Delivery Method Room Air Room Air MDM - Dental/Oral Differential Diagnosis Differential diagnosis: Likely gingival abscess, dental caries, toothache and dental abscess Chronic Condition is having:: Moderate exacerbation Medical Records Medical records narrative: Refills of Percocet and morphine noted, but in records here this was May 2022 Discharge Plan Departure Patient Disposition: Home Clinical Impression: Dental caries, Toothache, Dental abscess Instructions: DI for Dental Pain Activity Restrictions/Additional Instructions: Your right upper premolar tooth is quite decayed, and a source of your pain, although there does not seem to be significant swelling to the gingiva/gum at this time, nor to the face, which sometimes can happen with dental infections. Pain is presumed due to dental abscess. He had recently been on amoxicillin, try using clindamycin antibiotic which is preferred by some dentists but others use amoxicillin. Pain will not really fully resolve until there is likely extraction of this significantly injured decayed tooth. Follow-up with dentist as soon as possible. Take further clindamycin antibiotic as directed. Take pain medications as directed. Return if this/nearest emergency department for any change or worsening symptoms or new concerns prior Prescriptions: New clindamycin HCl 300 mg capsule 300 mg PO Q6H 7 Days Qty: 28 0RF No Action morphine 15 mg tablet 15 mg PO Q4H PRN (Reason: pain) Qty: 12 0RF albuterol sulfate 90 mcg/actuation HFA aerosol inhaler 2 puff inhalation QID PRN (Reason: shortness of breath or wheezing) Qty: 8.5 0RF prednisone 20 mg tablet 40 mg PO DAILY Qty: 6 0RF albuterol sulfate 90 mcg/actuation HFA aerosol inhaler 2 puff inhalation Q6H PRN (Reason: shortness of breath or wheezing) Qty: 6.7 0RF oxycodone-acetaminophen [Percocet] 5-325 mg tablet 1 tab PO Q8H PRN (Reason: pain) Qty: 20 0RF ibuprofen 600 mg tablet 600 mg PO Q8H PRN (Reason: pain) Qty: 30 0RF Stand Alone Forms: Patient Portal/API
[2023-08-02] MEDS: KETOROLAC 30 MG/ML VIAL IM (03:01)
[2023-08-02] MEDS: CLINDAMYCIN 150 MG CAPSULE 300 MG PO (03:02)
[2023-08-02 03:09] VITALS: BP 140/90; PULSE 88; RESP 20; TEMP 36.7; O2SAT 98
[2023-08-02] MEDS: TRAMADOL 50 MG PREPACK 1 BOTTLE MISC (03:24)
== END 2023-08-02 03:41 | disposition home or self-care (01) ==
PROVIDERS: Emergency Provider Emergency Medicine
DX: K04.7 Periapical abscess without sinus (principal); K02.9 Dental caries, unspecified; K08.89 Other specified disorders of teeth and supporting structures
CPT/HCPCS: 96372; 99283; J1885